=== PATIENT | female | born 1940 | race Caucasian/White ===

== ENCOUNTER 2020-09-14 12:58 | Emergency (ER) | payer MEDICARE, OTHER ==
[~2020-09-14] VITALS: Ht 167.6 cm; Wt 53.0 kg
[2020-09-14] MEDS ORDERED: ONDANSETRON 2MG/ML, 2ML ONE (13:44)
[2020-09-14] MEDS ORDERED: MORPHINE SULFATE 4 MG/ML, 1ML ONE ×2 (13:44→14:26)
[2020-09-14] MEDS: MORPHINE SULFATE 4 MG/ML, 1ML IVPush PRN ×2 (13:53→14:29)
[2020-09-14] MEDS ORDERED: SODIUM CHLORIDE FLUSH 10ML SYR IVF ONE (14:00)
[2020-09-14] MEDS ORDERED: ONDANSETRON 2MG/ML, 2ML IVPush ONE (14:00)
--- NOTE | 2020-09-14 14:02 | NUR ---
PIV PLACED, LABS DRAWN AND COLLECTED BY MANUFACTURING LEADER. MEDS ADMIN PER MAY. OXYGEN ADMIN FOR SAFETY. PT CONNECTED TO MONITORING.
[2020-09-14 14:10] LABS: BASOPHILS % (AUTO) 1 % (0-1); EOSINOPHILS % (AUTO) 2 % (1-7); LYMPHOCYTES % (AUTO) 29 % (22-44); MEAN CORPUSCULAR HEMOGLOBIN 28.6 pg (27.0-34.8); MEAN CORPUSCULAR HGB CONC 33.1 g/dL (32.4-35.8); MEAN PLATELET VOLUME 7.3 fL (7.4-10.4); MONOCYTES % (AUTO) 5 % (2-9); NEUTROPHILS % (AUTO) 62 % (42-75); PLATELET COUNT 299 x10^3/uL (130-400); RED BLOOD COUNT 5.97 x10^6/uL (3.82-5.3); RED CELL DISTRIBUTION WIDTH 14.1 % (9.6-15.2)
[2020-09-14 14:17] LABS: ALBUMIN 3.9 g/dL (3.4-5.0); ANION GAP 6 mmol/L (5-15); CALCIUM 9.5 mg/dL (8.5-10.1); CHLORIDE 103 mmol/L (98-107); CREATININE 1.13 mg/dL (0.55-1.02)
--- NOTE | 2020-09-14 14:18 | NUR ---
PT AMBULATED TO RESTROOM WITH STEADY GAIT TO PROVIDE URINE SAMPLE. PT URINATED PRIOR TO CLEANING AND PLACING SPECIMEN CUP. PT STATES SHE HAS A WEAK BLADDER AND CAN'T ALWAYS HOLD IT. PT DENIES ANY URINARY SX.
--- NOTE | 2020-09-14 14:23 | NUR ---
PT PROVIDED AND INSTRUCTED ON INCENTIVE SPIROMETER.
--- NOTE | 2020-09-14 14:33 | NUR ---
SECOND DOSE PAIN COMMUNICATION MANAGER FOR 10/10 PAIN.
--- NOTE | 2020-09-14 14:59 | NUR ---
PT AT CT
[2020-09-14] MEDS ORDERED: OMNIPAQUE 350 MG/ML, 100ML BOTTLE ONE (15:07)
--- NOTE | 2020-09-14 15:22 | NUR ---
PT AMBULATED TO RESTROOM WITH STEADY GAIT TO PROVIDE URINE SAMPLE. UA COLLECTED AND SENT TO LAB.
[2020-09-14 15:31] LABS: MICROSCOPIC NOT IND
[2020-09-14 15:44] VITALS: BP 115/73
--- NOTE | 2020-09-14 15:45 | NUR ---
ALL RESULTS ARE BACK AT THIS TIME. CHART UP FOR RECHECK.
--- NOTE | 2020-09-14 15:54 | NUR ---
ERPA AT BEDSIDE TO UPDATE PT ON POC. GRANDDAUGHTER AT BEDSIDE.
== END 2020-09-14 16:26 | disposition home or self-care (01) ==
LOC: ED 13:08
DX: S20.212A Contusion of left front wall of thorax, initial encounter (principal); R10.12 Left upper quadrant pain; R94.31 Abnormal electrocardiogram [ECG] [EKG]; W01.0XXA Fall on same level from slipping, tripping and stumbling without subsequent striking against object, initial encounter; Y93.89 Activity, other specified; Y92.009 Unspecified place in unspecified non-institutional (private) residence as the place of occurrence of the external cause; Y99.8 Other external cause status
CPT/HCPCS: 36415; 71045; 74177; 80048; 81003; 82040; 85025; 93005; 96374; 96375; 96376; 99285; J2270; J2405; Q9967

== ENCOUNTER 2020-11-23 13:20 | Outpatient (CLI) | payer MEDICARE ==
[2020-11-23] MEDS ORDERED: OMNIPAQUE 350 MG/ML, 75ML BOTTLE ONE (14:05)
== END 2020-11-23 23:59 | disposition home or self-care (01) ==
LOC: CFH 13:20
PROVIDERS: ATTEND Family Medicine
DX: D38.1 Neoplasm of uncertain behavior of trachea, bronchus and lung (principal); J43.2 Centrilobular emphysema; J84.10 Pulmonary fibrosis, unspecified; R91.8 Other nonspecific abnormal finding of lung field; I70.0 Atherosclerosis of aorta; M51.34 Other intervertebral disc degeneration, thoracic region; M43.8X6 Other specified deforming dorsopathies, lumbar region
CPT/HCPCS: 71260; 82565; Q9967